=== PATIENT | male | born 1980 | race Two or more races ===

== ENCOUNTER 2023-06-08 21:02 | Emergency (ER) | payer BC ==
[~2023-06-08] VITALS: Ht 177.8 cm; Wt 117.9 kg
[2023-06-08 22:00] VITALS: BP 180/123; TEMP 98.4; O2SAT 96
[2023-06-08] MEDS ORDERED: dexaMETHasone SOD PHOSPHATE 1 ML ONE (22:26)
[2023-06-08] MEDS ORDERED: KETO10TA2 PO (22:29)
[2023-06-08] MEDS ORDERED: PRED20TA PO (22:29)
[2023-06-08] MEDS ORDERED: dexaMETHasone SOD PHOSPHATE 10 MG/ML VIAL MC ONE (22:30)
== END 2023-06-08 22:36 | disposition home or self-care (01) ==
LOC: EDUNIT# 21:02 → ER 21:08
DX: J04.0 Acute laryngitis (principal); Z79.899 Other long term (current) drug therapy
CPT/HCPCS: 99283; 87880; J1100; 86403-TC